=== PATIENT | female | born 1980 | race Caucasian/White ===

== ENCOUNTER 2024-10-22 12:34 | Emergency (ER) | payer OTHER ==
[~2024-10-22] VITALS: Ht 160 cm; Wt 73.9 kg
[2024-10-22 12:36] VITALS: BP 184/112; PULSE 91; RESP 15; O2SAT 99
--- NOTE | 2024-10-22 16:07 | RADIOLOGY REPORT ---
HISTORY: periorbital swelling, fall 4 days ago, photophobia, severe headaches TECHNIQUE: Nonenhanced axial images through the facial bones with coronal and sagittal MPR. Radiation Dose Information: CT Dose: CTDI volume is 55 mGy. Dose-length product is 933 mGy*cm COMPARISON: None FINDINGS: Mandible: Unremarkable Maxilla: Displaced fracture of the left inferior orbital wall/ superior maxillary sinus wall. Zygomatic arches: Unremarkable Nasal bone: Unremarkable Orbits: Nondisplaced fracture of the medial left orbital wall. Sinuses: Opacification of the left maxillary sinus possibly containing hemorrhage. Facial swelling: Left pre orbital and pre maxillary soft-tissue swelling. Moderate volume left pre o rbital subcutaneous emphysema. Small volume gas in the left retro-orbital soft-tissue. Punctate hyperdensity is present in the superior medial and anterior left periorbital soft-tissue pos sibly representing a small fracture fragment or foreign body. IMPRESSION: Displaced fractures of the left inferior orbital wall and left inferomedial orbital wall. There is cl ose approximation of fracture line to the inferior rectus muscle. Entrapment is not completely exclud ed. Recommend correlation with ocular exam. Punctate hyperdensity is present in the superior medial and anterior left periorbital soft-tissue pos sibly representing a small fracture fragment or foreign body.
[2024-10-22] MEDS: acetaminophen 325mg tablet PO ONE (16:18)
[2024-10-22] MEDS: naproxen 500mg tablet PO ONE (16:19)
--- NOTE | 2024-10-22 16:25 | RADIOLOGY REPORT ---
EXAM: CT Head Without Intravenous Contrast CLINICAL INDICATION: periorbital swelling, fall 4 days ago, photophobia, severe headaches TECHNIQUE: Axial computed tomography images of the head/brain without intravenous contrast. This CT exam was performed using one or more of the following dose reduction techniques: automated exposure control, adjustment of the mA and/or kV according to patient size, and/or use of iterative reconstru ction technique. CONTRAST: COMPARISON: No relevant prior studies available. FINDINGS: BRAIN AND EXTRA-AXIAL SPACES: No acute intracranial hemorrhage, midline shift or mass effect. If sy mptoms persist, further evaluation with MRI is recommended. No significant white matter disease. BONES/JOINTS: Unremarkable. No acute fracture. SOFT TISSUES: Unremarkable. SINUSES: Unremarkable as visualized. No acute sinusitis. MASTOID AIR CELLS: Unremarkable as visualized. No mastoid effusion. OTHER FINDINGS: Comparison None. . IMPRESSION: No acute intracranial hemorrhage, midline shift or mass effect. If symptoms persist, further evaluat ion with MRI is recommended. HS:Y
--- NOTE | 2024-10-22 17:16 | Physician Documentation ---
History of Present Illness ~ Chief Complaint: Eye Pain Stated Complaint: FALL/FACE SWELLING Time Seen by MD: 15:01 OK to notify your PCP?: Yes Source: patient Mode of Arrival: POV Exam Limitations: no limitations HPI 44-year-old female presents with left orbital swelling and pain after falling on her head 4 days ago while intoxicated. She does not recall if there was any loss of consciousness. She denies taking any blood thinners. She has also been having a severe headache, pain in her jaw with eating and photophobia. Medication Reconciliation Allergies: Coded Allergies: No Known Allergies (Unverified , 10/22/24) Scheduled Naproxen (Naproxen), 1 TAB PO Q12H Prednisone (Prednisone), 1 TAB PO DAILY Scheduled PRN Hydrocodone Bit/Acetaminophen (Hydrocodon-Acetaminophn 10-325 tablet), 1 TAB PO QID PRN PRN for pain Past Medical History Smoking Status: Current every day smoker Review of Systems All Other Systems at this time: Reviewed and Negative Physical Exam Vital Signs: RN Vital Signs have been reviewed: Yes, Temperature: 98.2, Source: Temporal, Heart Rate: 91, Respiratory Rate: 15, BP: 184/112, Pulse Oximetry: 99, Weight: 73.900 Pulse Oximetry Reflects: adequate oxygenation Physical Exam General: Alert, no distress. HEENT: No injection, moist mucous membranes. PERRLA, EOMI. Left eye per iorbital edema and pain to palpation around orbital and zygomatic process. Bilateral TM clear. No trismus. Neck: Full range of motion. No C-spine midline tenderness. Respiratory: No respiratory distress, equal chest rise and fall. Chest: No accessory muscle use. Cardiovascular: Regular rate and rhythm. Gastrointestinal: Nondistended. Extremities: Normal range of motion, no deformity. Neurologic: Oriented x4. Psychiatric: Normal mood and affect. Skin: Normal color, warm and dry. Progress Results/Orders Reviewed/noted all lab results: Yes Results/Orders Orders - ROSSY ZAPATAP Ct Facial Bones/Soft Tissue (10/22/24 15:35) Ct Head (10/22/24 15:35) Completed Orders - ROSSY ZAPATAP Ct Facial Bones/Soft Tissue (10/22/24 15:35) Ct Head (10/22/24 15:35) Naproxen Tablet (Naprosyn Tablet) (10/22/24 15:10) Acetaminophen 325mg Tablet (Tylenol Tabl (10/22/24 15:10) Medications Received in ER Medications (Trade) Dose Ordered Sig/Diamond Route PRN Reason Start Time Stop Time Status Last Admin Dose Admin (Naprosyn tablet) 500 mg ONCE ONCE PO 10/22/24 15:10 10/22/24 15:21 DC 10/22/24 16:19 500 MG (Tylenol tablet) 650 mg ONCE ONCE PO 10/22/24 15:10 10/22/24 15:21 DC 10/22/24 16:18 650 MG Vital Signs 10/22/24 10/22/24 12:36 18:11 Temp 98.2 98.2 Pulse 91 Resp 15 B/P (MAP) 184/112 Pulse Ox 99 EKG/XRAY/CT/US/VASC/MRI CT : Impression CT facial bones, soft tissue with contrast interpreted by me shows displaced fracture of the left inferior orbital wall and left inferior medial orbital wall with pre orbital and maxillary soft tissue swelling. There is a moderate amount of periorbital subcutaneous emphysema. CT head contrast interpreted by me shows no acute skull fracture, no midline shift, no hematoma. Medical Decision Making Findings 44-year-old female presents with left periorbital swelling and pain after falling [address] shows displaced fractures of the left inferior orbital wall and left inferiomedial orbital wall correlates to her physical exam. Physical exam shows periorbital edema and tenderness to palpation along orbital and zygomatic process. She has been having pain with chewing but has no trismus. There is no entrapment of the inferior rectus muscle. I consulted with Dr. Garcia regarding this case who recommended consult with ENT and a possible transfer. We gave naproxen and Tylenol while in the department for pain relief. Initiated transfer to [facility]. Dr. Victoria (ER DOC) accepted transfer if ENT accepts. Spoke with ENT, Dr. Medel discussed the case. He reported that as there is no entrapment there is no need for surgery at this point in his she can follow up at his office on an outpatient basis. He did recommend possible Ophthalmology if she is having photophobia in that eye as well as a prednisone Dosepak to help with the swelling.. I have ordered a prednisone Dosepak, naproxen and [place] to her pharmacy and given her the follow up instructions for the ENT office. She should follow up and call them tomorrow morning. She should return back here for any new or worsening symptoms such as vision changes. Originally sent prescriptions to rule [facility] but they were out of stock so change to [facility]. Eye Diff. Dx: Considerations: Include: Conjuctivitis-viral, Globe rupture, Iritis, Orbital cellulitis, Periobital cellulitis, Retinal artery occulsion, Retinal vein occlusion, Uveitis Departure Disposition: 01 HOME / SELF CARE / HOMELESS Impression: Primary Impression: Orbital fracture Condition: Stable Discharge Instructions: Orbital Fracture Additional Instructions: Spoke with ENT, Dr. Medel. she can follow up at his office on an outpatient basis, She should follow up and call them tomorrow morning. He did recommend possible Ophthalmology if she is having photophobia in that eye as well. She should return back here for any new or worsening symptoms such as vision changes. You can use naproxen, tylenol and [place] if needed for pain relief. Referrals: NO PRIMARY CARE PROVIDER (PCP) DIANE MEDEL III, MD Prescriptions Naproxen (Naproxen) 500 Mg Tablet 1 TAB PO Q12H, #20 TAB Prov: ROSSY ZAPATAP 10/22/24 Hydrocodone Bit/Acetaminophen (Hydrocodon-Acetaminophn 10-325 tablet) 10mg- 325mg Tablet 1 TAB PO QID PRN PRN for pain for 5 Days, #20 TAB Prov: ROSSY ZAPATAP 10/22/24 Prednisone (Prednisone) 10 Mg Tablet 1 TAB PO DAILY for 5 Days, #21 TAB Day 1 take 6 tablets once daily. Day 2 take 5 tablets once daily. Day 3 take 4 tablets once daily day. Day 4 take 3 tablets once daily day. Day 5 take 2 once daily. Day 6 take 1 tablet once daily. Prov: ROSSY ZAPATAP 10/22/24 Education Educated: Patient Educated regarding: diagnosis, treatment, prognosis, need for follow up Additional Comment Medical Screen Exam This patient recieved a medical screening examination. After reviewing the individual's medical complaints with presenting symptoms and performing an appropriate physical examination, it was determined that no immediate life- threatening emergency medical condition is present. This individual is also not a women having contractions. Signature Scribe Signature: . Attestation: Scribed for Rossy Zapatap by Rossy Torres NP . 10/22/24 17:42 ROSSY ZAPATA Oct 22, 2024 17:16
[2024-10-22] MEDS ORDERED: PRED10TA23 PO (17:52)
[2024-10-22] MEDS ORDERED: NAPR-56 PO (17:52)
[2024-10-22] MEDS ORDERED: HYDR-3972 PO (17:52)
[2024-10-22 18:11] VITALS: TEMP 98.2
== END 2024-10-22 18:12 | disposition home or self-care (01) ==
LOC: ER 12:35
DX: S02.32XA Fracture of orbital floor, left side, initial encounter for closed fracture (principal); F17.200 Nicotine dependence, unspecified, uncomplicated; W19.XXXA Unspecified fall, initial encounter; Y93.89 Activity, other specified; Y92.89 Other specified places as the place of occurrence of the external cause; Y99.8 Other external cause status
CPT/HCPCS: 70450; 70486; 99284